=== PATIENT | male | born 1975 | race African-American/Black ===

== ENCOUNTER 2017-10-29 13:22 | Emergency (ER) | payer OTHER ==
[~2017-10-29] VITALS: Ht 177.8 cm; Wt 120.0 kg
[2017-10-29 13:35] VITALS: BP 134/90; TEMP 98.6; O2SAT 100
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
[2017-10-29] MEDS ORDERED: SODIUM CHLOR 0.9% 1000 ML INJ 1,000 ML IV SCH (13:53)
[2017-10-29] MEDS ORDERED: ONDANSETRON HCL 4 MG/2 ML VIAL IVP ONE (14:00)
[2017-10-29] MEDS ORDERED: KETOROLAC TROMETHAMINE 60 MG/2 ML (IM) VIAL IM ONE (14:00)
[2017-10-29] MEDS ORDERED: SODIUM CHLORIDE 0.9% FLUSH 10 ML FLUSH IV FLUSH PRN (14:00)
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
[2017-10-29] MEDS ORDERED: CYCL10TA PO (15:46)
[2017-10-29] MEDS ORDERED: NAPR500T2 PO (15:46)
[2017-10-29] MEDS ORDERED: TRAM50TA PO (15:46)
== END 2017-10-29 16:11 | disposition home or self-care (01) ==
LOC: NEPD 13:22
DX: S16.1XXA Strain of muscle, fascia and tendon at neck level, initial encounter (principal); V79.59XA Passenger on bus injured in collision with other motor vehicles in traffic accident, initial encounter; Z72.0 Tobacco use
CPT/HCPCS: 72125; 96372; 99283; J1885

== ENCOUNTER 2017-11-07 03:55 | Emergency (ER) | payer SELFPAY ==
[~2017-11-07 03:55] MED LIST: CYCL10TA PO; NAPR500T2 PO; TRAM50TA PO
[2017-11-07 04:02] VITALS: BP 163/96; PULSE 106; RESP 19; O2SAT 97
[2017-11-07 04:28] LABS: AUTOMATED NEUTROPHIL # 3.7 TH/MM3 (1.8-7.7); BASOPHIL % 0.6 % (0.0-2.0); EOSINOPHIL # 0.2 TH/MM3 (0-0.4); EOSINOPHIL % 3.8 % (0.0-4.0); HEMATOCRIT 46.3 % (39.0-51.0); HEMOGLOBIN 15.5 GM/DL (13.0-17.0); LYMPH % 25.3 % (9.0-44.0); LYMPHOCYTE # 1.5 TH/MM3 (1.0-4.8); MEAN CORPUSCULAR HEMOGLOBIN 31.4 PG (27.0-34.0); MEAN CORPUSCULAR HGB CONC 33.4 % (32.0-36.0); MONO % 9.4 % (0.0-8.0); MONOCYTE # 0.6 TH/MM3 (0-0.9); NEUT % 60.9 % (16.0-70.0); PLATELET COUNT 234 TH/MM3 (150-450); RED BLOOD COUNT 4.92 MIL/MM3 (4.50-5.90); WHITE BLOOD COUNT 6.1 TH/MM3 (4.0-11.0)
[2017-11-07 04:44] LABS: BLOOD, URINE NEG (NEG); GLUCOSE,URINE NEG (NEG); KETONE, URINE 15 mg/dL (NEG); NITRITE,URINE NEG (NEG); PH, URINE 5.5 (5.0-8.5); URINE LEUKOCYTE ESTERASE NEG (NEG)
[2017-11-07 04:45] LABS: URINE COLOR LIGHT-ORANGE (YELLW/STRAW)
[2017-11-07] MEDS ORDERED: diphenhydrAMINE HCL 50 MG CAP PO ONE (04:45)
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
[2017-11-07 04:48] LABS: BILIRUBIN, URINE NEG (NEG)
[2017-11-07 04:51] LABS: HYALINE CAST, URINE 2 /lpf (RARE); MUCUS URINE MOD /lpf (OCC); SQUAMOUS EPITHELIAL CELL URINE 1 /hpf (0-5)
[2017-11-07 04:58] LABS: ALBUMIN 3.8 GM/DL (3.4-5.0); ALT (GPT) 69 U/L (12-78); AST (GOT) 72 U/L (15-37); BICARBONATE 22.5 MEQ/L (21.0-32.0); BLOOD UREA NITROGEN 8 MG/DL (7-18); CALCIUM 8.9 MG/DL (8.5-10.1); CHLORIDE 100 MEQ/L (98-107); CREATININE 1.35 MG/DL (0.60-1.30); GLOMERULAR FILTRATION RATE 71 ML/MIN (>89); GLUCOSE,RANDOM 203 MG/DL (74-106); SODIUM (NA) 136 MEQ/L (136-145)
[2017-11-07] MEDS ORDERED: CARVEDILOL 12.5 MG TAB PO ONE (05:00)
[2017-11-07 05:01] LABS: ALKALINE PHOSPHATASE 67 U/L (45-117); TOTAL BILIRUBIN ADULT 1.1 MG/DL (0.2-1.0)
[2017-11-07 05:05] LABS: ACETAMINOPHEN LESS THAN 2.0 MCG/ML (10.0-30.0)
--- NOTE | 2017-11-07 09:55 | PD ---
Data Data Last Documented VS Vital Signs Date Time Temp Pulse Resp B/P (MAP) Pulse Ox O2 Delivery O2 Flow Rate FiO2 11/07/17 04:02 106 19 163/96 (118) 97 Orders Orders Complete Blood Count With Diff (11/07/17 04:08) Comprehensive Metabolic Panel (11/07/17 04:08) Urinalysis - C+S If Indicated (11/07/17 04:08) Psych Screen (11/07/17 04:08) Drug Screen, Random Urine (11/07/17 04:08) Alcohol (Ethanol) (11/07/17 04:08) Salicylates (Aspirin) (11/07/17 04:08) Tylenol (Acetaminophen) (11/07/17 04:08) Diphenhydramine (Benadryl) (11/07/17 04:45) Carvedilol (Coreg) (11/07/17 05:00) Diet Regular Basic (11/07/17 Breakfast) Labs Laboratory Tests Test 11/07/17 04:10 White Blood Count 6.1 TH/MM3 Red Blood Count 4.92 MIL/MM3 Hemoglobin 15.5 GM/DL Hematocrit 46.3 % Mean Corpuscular Volume 94.0 FL Mean Corpuscular Hemoglobin 31.4 PG Mean Corpuscular Hemoglobin Concent 33.4 % Red Cell Distribution Width 14.0 % Platelet Count 234 TH/MM3 Mean Platelet Volume 9.0 FL Neutrophils (%) (Auto) 60.9 % Lymphocytes (%) (Auto) 25.3 % Monocytes (%) (Auto) 9.4 % Eosinophils (%) (Auto) 3.8 % Basophils (%) (Auto) 0.6 % Neutrophils # (Auto) 3.7 TH/MM3 Lymphocytes # (Auto) 1.5 TH/MM3 Monocytes # (Auto) 0.6 TH/MM3 Eosinophils # (Auto) 0.2 TH/MM3 Basophils # (Auto) 0.0 TH/MM3 CBC Comment DIFF FINAL Differential Comment Urine Color LIGHT-ORANGE Urine Turbidity CLEAR Urine pH 5.5 Urine Specific Bly 1.032 Urine Protein 100 mg/dL Urine Glucose (UA) NEG mg/dL Urine Ketones 15 mg/dL Urine Occult Blood NEG Urine Nitrite NEG Urine Bilirubin NEG Urine Urobilinogen 1.0 MG/DL Urine Leukocyte Esterase NEG Urine RBC LESS THAN 1 /hpf Urine WBC 2 /hpf Urine Squamous Epithelial Cells 1 /hpf Urine Hyaline Casts 2 /lpf Urine Mucus MOD /lpf Microscopic Urinalysis Comment CULT NOT INDICATED Blood Urea Nitrogen 8 MG/DL Creatinine 1.35 MG/DL Random Glucose 203 MG/DL Total Protein 7.0 GM/DL Albumin 3.8 GM/DL Calcium Level 8.9 MG/DL Alkaline Phosphatase 67 U/L Aspartate Amino Transf (AST/SGOT) 72 U/L Alanine Aminotransferase (ALT/SGPT) 69 U/L Total Bilirubin 1.1 MG/DL Sodium Level 136 MEQ/L Potassium Level 3.6 MEQ/L Chloride Level 100 MEQ/L Carbon Dioxide Level 22.5 MEQ/L Anion Gap 14 MEQ/L Estimat Glomerular Filtration Rate 71 ML/MIN Salicylates Level LESS THAN 1.7 MG/DL Urine Opiates Screen NEG Acetaminophen Level LESS THAN 2.0 MCG/ML Urine Barbiturates Screen NEG Urine Amphetamines Screen NEG Urine Benzodiazepines Screen NEG Urine Cocaine Screen POS Urine Cannabinoids Screen POS Ethyl Alcohol Level LESS THAN 3 MG/DL MDM Medical Record Reviewed: Yes Supervised Visit with DARON: No Narrative Course Please see previous providers notes. This patient has been cleared by psychiatry. He has no medical issues that would warrant further hospitalization. He is currently calm, cooperative, eating a meal. He is stable for discharge. Diagnosis Primary Impression: Medical clearance for psychiatric admission Additional Impressions: Bug bite Qualified Codes: W57.XXXA - Bitten or stung by nonvenomous insect and other nonvenomous arthropods, initial encounter Polysubstance abuse Med/Other Pt SpecificInfo: No Change to Meds Disposition: 01 DISCHARGE HOME Condition: Stable Enrique Ramires November 07, 2017 09:55
--- NOTE | 2017-11-07 10:14 | PD ---
History of Present Illness Chief Complaint: Psychiatric Symptoms Time Seen by Provider: 08:45 Travel History International Travel<30 Days: No Contact w/Intl Traveler<30days: No Known affected area: No Legal Status Legal Status: Voluntary History of Present Illness: This is a 42-year-old single, -Citizen Of The [place] male who presents voluntarily to this facility with reports of suicidal ideation. Patient has not been seen at this facility previously for mental health issues. Reviewed electronic medical record, labs, discuss case with staff. Patient's toxicology screen shows positive for cocaine and cannabinoids. He reports that 4 months ago he was at [facility] and a dual diagnosis program. From there he was living at [facility]. He was recently kicked out due to his continued use of crack cocaine and cannabinoids. Patient reports that he is from [place] and 3 years ago his mother put him on a bus to [place]. At this time he is jobless and homeless. He states that he has "not been taking my medications because I been going out partying". He reports that he gets his medications from [facility]. Upon examination this morning he is alert and oriented 4. His speech is clear, logical, and organized. There is no internal stimulation. No indication of thought blocking. He dozes off multiple times throughout the conversation and a half to verbally stimulate him to wake him up. He is in no apparent distress throughout the interview. Self- reported history of schizophrenia and bipolar disorder. He claims that he hears voices that are derogatory in nature, denies that they are command. PFSH Past Medical History Bipolar Disorder: Yes Hypertension: Yes Schizophrenia: Yes Psychiatric History Psychiatric History Self reports recent admission at [facility] and a dual diagnosis program. Self reports that he has diagnoses of schizophrenia and bipolar disorder. History of Inpatient Treatment: Yes Guns or firearms in home: No Social History Hx Alcohol Use: Yes Hx Tobacco Use: Yes Hx Substance Use: No Substance Use Type: Crack, Marijuana Hx of Substance Use Treatment: Yes Family Psychiatric History Denies history of familial suicide. Reports family members diagnosed with mental health illness. Allergies-Medications (Allergen,Severity, Reaction): Coded Allergies: No Known Allergies (Unverified , 10/29/17) Reported Meds & Prescriptions Reported Meds & Active Scripts Active Mental Status Examination Appearance: Dirty, Disheveled Consciousness: Alert, Asleep (Initially, falls asleep frequently during interview.) Orientation: x4 Motor Activity: Normal gait Speech: Unremarkable Language: Adequate Fund of Knowledge: Adequate Attention and Concentration: Adequate Memory: Unremarkable Mood: Appropriate, Good Affect: Appropriate, Euthymic Thought Process & Associations: Intact Thought Content: Appropriate Hallucination Type: None Delusion Type: None Suicidal Ideation: Yes (States he has however he reports that he try to kill himself by smoking crack, notably his drug of choice.) Suicidal Plan: No Suicidal Intention: No Homicidal Ideation: No Homicidal Plan: No Homicidal Intention: No Insight: Fair Judgment: Impulsive MDM Medical Decision Making Medical Record Reviewed: Yes Assessment/Plan This is a 42-year-old single, -Citizen Of [place] male who reports voluntarily to this facility for reported suicidal ideation. Upon examination this morning patient was found to be alert and oriented 4. He is resting comfortably and falls asleep multiple times during the interview. There are no signs of distress. There is no internal stimulation present. He claims to be suicidal and when asked for plan he reported that he had attempted to kill himself by smoking crack cocaine. Pointed out that this is his drug of choice. He denies homicidal ideation, and visual hallucinations. He reports that he has auditory hallucinations but, states that he has heard voices since he was 8 years old. The voices are not command however they are derogatory in nature. He does not meet inpatient criteria at this time. He will be discharged with instructions to follow-up at [facility] to get back onto his medications. Additionally, he will be advised to see about detox. He was advised to stop using illicit substances. Orders Orders Complete Blood Count With Diff (11/07/17 04:08) Comprehensive Metabolic Panel (11/07/17 04:08) Urinalysis - C+S If Indicated (11/07/17 04:08) Psych Screen (11/07/17 04:08) Drug Screen, Random Urine (11/07/17 04:08) Alcohol (Ethanol) (11/07/17 04:08) Salicylates (Aspirin) (11/07/17 04:08) Tylenol (Acetaminophen) (11/07/17 04:08) Diphenhydramine (Benadryl) (11/07/17 04:45) Carvedilol (Coreg) (11/07/17 05:00) Diet Regular Basic (11/07/17 Breakfast) Ed Discharge Order (11/07/17 09:56) Results Vital Signs Date Time Temp Pulse Resp B/P (MAP) Pulse Ox O2 Delivery O2 Flow Rate FiO2 11/07/17 04:02 106 19 163/96 (118) 97 Laboratory Tests Test 11/07/17 04:10 White Blood Count 6.1 Red Blood Count 4.92 Hemoglobin 15.5 Hematocrit 46.3 Mean Corpuscular Volume 94.0 Mean Corpuscular Hemoglobin 31.4 Mean Corpuscular Hemoglobin Concent 33.4 Red Cell Distribution Width 14.0 Platelet Count 234 Mean Platelet Volume 9.0 Neutrophils (%) (Auto) 60.9 Lymphocytes (%) (Auto) 25.3 Monocytes (%) (Auto) 9.4 Eosinophils (%) (Auto) 3.8 Basophils (%) (Auto) 0.6 Neutrophils # (Auto) 3.7 Lymphocytes # (Auto) 1.5 Monocytes # (Auto) 0.6 Eosinophils # (Auto) 0.2 Basophils # (Auto) 0.0 CBC Comment DIFF FINAL Differential Comment Urine Color LIGHT-ORANGE Urine Turbidity CLEAR Urine pH 5.5 Urine Specific [place] 1.032 Urine Protein 100 Urine Glucose (UA) NEG Urine Ketones 15 Urine Occult Blood NEG Urine Nitrite NEG Urine Bilirubin NEG Urine Urobilinogen 1.0 Urine Leukocyte Esterase NEG Urine RBC LESS THAN 1 Urine WBC 2 Urine Squamous Epithelial Cells 1 Urine Hyaline Casts 2 Urine Mucus MOD Microscopic Urinalysis Comment CULT NOT INDICATED Blood Urea Nitrogen 8 Creatinine 1.35 Random Glucose 203 Total Protein 7.0 Albumin 3.8 Calcium Level 8.9 Alkaline Phosphatase 67 Aspartate Amino Transf (AST/SGOT) 72 Alanine Aminotransferase (ALT/SGPT) 69 Total Bilirubin 1.1 Sodium Level 136 Potassium Level 3.6 Chloride Level 100 Carbon Dioxide Level 22.5 Anion Gap 14 Estimat Glomerular Filtration Rate 71 Salicylates Level LESS THAN 1.7 Urine Opiates Screen NEG Acetaminophen Level LESS THAN 2.0 Urine Barbiturates Screen NEG Urine Amphetamines Screen NEG Urine Benzodiazepines Screen NEG Urine Cocaine Screen POS Urine Cannabinoids Screen POS Ethyl Alcohol Level LESS THAN 3 Diagnosis Primary Impression: Polysubstance abuse Additional Impression: Malingering Departure Forms: Tests/Procedures Patient Instructions: General Instructions, Insect Bite or Sting (ED), Polysubstance Abuse (ED) Disposition: 01 DISCHARGE HOME Condition: Stable Problem Qualifiers Denise Preciado November 07, 2017 10:14
== END 2017-11-07 10:11 | disposition home or self-care (01) ==
LOC: NEPD 03:55
DX: F19.10 Other psychoactive substance abuse, uncomplicated (principal); F20.9 Schizophrenia, unspecified; R45.851 Suicidal ideations; F31.9 Bipolar disorder, unspecified; F12.90 Cannabis use, unspecified, uncomplicated; F14.90 Cocaine use, unspecified, uncomplicated; Z76.5 Malingerer [conscious simulation]; Z72.0 Tobacco use; Z59.0 Homelessness
CPT/HCPCS: 80053; 80307; 81001; 85025; 99283; Q0163